=== PATIENT | female | born 1945 | race Caucasian/White ===

== ENCOUNTER → 2018-09-27 09:17 | Outpatient (CLI) | payer MEDICARE, SELFPAY ==
--- NOTE | 2018-09-27 08:00 | RAD_ITS ---
CLINICAL HISTORY: Female, 72 years old. Possible rotator cuff tear. PROCEDURE: ARTHROGRAM - RIGHT SHOULDER CONSENT: The procedure as well as the benefits and possible complications including infection and bleeding were explained to the patient. Informed consent was obtained. FLUOROSCOPY TIME (if supplied): (0:30) minutes/seconds. 4 images were obtained. Injection Information: 10 cc of dilute Magnevist. Number of images obtained: 4 TECHNIQUE: (All elements of maximal sterile barrier technique followed, including US elements as applicable) The patient was in the supine position. The overlying skin was prepped and draped in the usual sterile fashion. Following local anesthetic application and under direct fluoroscopic guidance, a 22-gauge spinal needle was placed into the shoulder joint. 2 cc of Isovue 300 was injected for confirmation. Following this, 10 cc of dilute Magnevist was injected. There is evidence of a complete rotator cuff tear. RAD/Arthrogram Shoulder IMPRESSION: Findings indicative of a rotator cuff tear. A CT scan will follow. Electronically Signed: Enoch Hernandez, at 14:41 EDT , Service support ,
--- NOTE | 2018-09-27 10:04 | CT_ITS ---
STUDY: CT RIGHT SHOULDER REASON FOR EXAM: Female, 72 years old. Chronic shoulder pain. RADIATION DOSAGE (If Supplied By Facility): CTDIvol = ( 27.96 ) mGy, DLP = ( 532.74 ) mGycm TECHNIQUE: The patient was scanned in a multi detector CT scanner. High resolution transaxial imaging was performed with administration of intra-articular contrast material. Sagittal and coronal images were reconstructed. Individualized dose optimization techniques were used for this CT. COMPARISON: None. FINDINGS: There is evidence of a rotator cuff tear. Contrast is seen within the subacromial bursa. 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 Normal glenoid rim, neck and visualized scapula. Normal humeral head, neck and tuberosities. Normal coracoid process. Normal visualized lateral clavicle. Normal acromioclavicular articulation. There is a Type II morphology (curved), with a neutral orientation. CT/Extremity Upper WITH Contrast IMPRESSION: Full-thickness rotator cuff tear. Electronically Signed: Enoch Hernandez, at 13:31 EDT , Service support ,
== END ==
PROVIDERS: Family Provider Preventive Medicine Occupational Medicine; PCP Preventive Medicine Occupational Medicine; Referring Provider Specialist; Visit Provider Specialist
DX: S46.011A Strain of muscle(s) and tendon(s) of the rotator cuff of right shoulder, initial encounter (principal)
CPT/HCPCS: 23350; 73040; 73201; Q9967